=== PATIENT | female | born 1985 | race African-American/Black ===

== ENCOUNTER 2017-11-26 09:06 | Emergency (ER) | payer BC, SELFPAY | END 2017-11-26 09:30 | disposition home or self-care (01) | LOC: ERS 09:06 | DX: H10.9 Unspecified conjunctivitis (principal); F17.210 Nicotine dependence, cigarettes, uncomplicated | CPT/HCPCS: 99282 ==

== ENCOUNTER 2017-11-27 10:14 | Emergency (ER) | payer SELFPAY ==
[2017-11-27] MEDS ORDERED: Proparacaine 0.5% Opth 15 ML BOT ONE (10:52)
[2017-11-27] MEDS ORDERED: Fluorescein Opthalmic Strip ONE (10:52)
== END 2017-11-27 11:50 | disposition home or self-care (01) ==
LOC: ERS 10:14
DX: H10.9 Unspecified conjunctivitis (principal); H00.016 Hordeolum externum left eye, unspecified eyelid; F17.210 Nicotine dependence, cigarettes, uncomplicated
CPT/HCPCS: 99283

== ENCOUNTER 2018-05-23 07:02 | Emergency (ER) | payer SELFPAY ==
[2018-05-23] MEDS ORDERED: Ibuprofen 800 MG TAB ONE (07:23)
== END 2018-05-23 07:44 | disposition home or self-care (01) ==
LOC: ERS 07:02
DX: J02.9 Acute pharyngitis, unspecified (principal); F17.210 Nicotine dependence, cigarettes, uncomplicated
CPT/HCPCS: 87081; 87430; 87804; 99283

== ENCOUNTER 2018-06-02 10:04 | Emergency (ER) | payer SELFPAY | END 2018-06-02 12:15 | disposition home or self-care (01) | LOC: ERS 10:04 | DX: M25.511 Pain in right shoulder (principal) | CPT/HCPCS: 99281 ==

== ENCOUNTER 2018-08-28 21:02 | Emergency (ER) | payer SELFPAY ==
[2018-08-28] MEDS ORDERED: Ibuprofen 200 MG TAB ONE (21:58)
--- NOTE | 2018-08-28 22:02 | RAD ---
XR Shoulder Lt 3 View STANDARD History: Pain Comparison: None. Findings: No acute fracture or malalignment. Soft tissues are unremarkable. Impression: No acute fracture or malalignment.
== END 2018-08-28 22:21 | disposition home or self-care (01) ==
LOC: ERS 21:02
DX: M25.512 Pain in left shoulder (principal); F17.210 Nicotine dependence, cigarettes, uncomplicated

== ENCOUNTER 2018-11-29 18:52 | Emergency (ER) | payer SELFPAY | END 2018-11-29 19:40 | disposition home or self-care (01) | LOC: ERS 18:52 | DX: M25.512 Pain in left shoulder (principal); F17.210 Nicotine dependence, cigarettes, uncomplicated; Z71.6 Tobacco abuse counseling | CPT/HCPCS: 99406 ==

== ENCOUNTER 2019-03-22 16:57 | Emergency (ER) | payer SELFPAY ==
[2019-03-22] MEDS ORDERED: Acetaminophen 500 MG TAB ONE (18:10)
== END 2019-03-22 19:08 | disposition home or self-care (01) ==
LOC: ERS 16:57
DX: J11.1 Influenza due to unidentified influenza virus with other respiratory manifestations (principal); F17.210 Nicotine dependence, cigarettes, uncomplicated
CPT/HCPCS: 87081; 87430; 87804; 99406

== ENCOUNTER 2019-05-25 06:47 | Emergency (ER) | payer SELFPAY | END 2019-05-25 07:32 | disposition home or self-care (01) | LOC: ERS 06:47 | DX: B34.9 Viral infection, unspecified (principal); F17.210 Nicotine dependence, cigarettes, uncomplicated | CPT/HCPCS: 99281 ==

== ENCOUNTER 2020-04-16 09:39 | Emergency (ER) | payer SELFPAY ==
[2020-04-16 14:28] LABS: SARS-CoV-2 PCR by NAA Not Detected (NotDetected)
== END 2020-04-16 10:18 | disposition home or self-care (01) ==
LOC: ERS 09:39
DX: J02.9 Acute pharyngitis, unspecified (principal); R51.9 Headache, unspecified; Z20.822 Contact with and (suspected) exposure to COVID-19
CPT/HCPCS: 87635; 99284; U0003; U0005

== ENCOUNTER 2020-04-28 09:03 | Emergency (ER) | payer SELFPAY ==
[2020-04-28 14:04] LABS: SARS-CoV-2 PCR by NAA Not Detected (NotDetected)
== END 2020-04-28 09:39 | disposition home or self-care (01) ==
LOC: ERS 09:03
DX: J02.9 Acute pharyngitis, unspecified (principal); J34.89 Other specified disorders of nose and nasal sinuses; R05 Cough; M79.10 Myalgia, unspecified site; Z20.822 Contact with and (suspected) exposure to COVID-19
CPT/HCPCS: 87635; 99283; U0003; U0005

== ENCOUNTER 2020-11-06 | Emergency (ER) | payer SELFPAY | END 2020-11-06 12:38 | disposition home or self-care (01) ==

== ENCOUNTER 2021-07-23 10:25 | Emergency (ER) | payer OTHER, SELFPAY | END 2021-07-23 11:47 | disposition home or self-care (01) | LOC: ERS 10:25 | DX: M62.830 Muscle spasm of back (principal); M62.838 Other muscle spasm; F17.210 Nicotine dependence, cigarettes, uncomplicated; V43.52XA Car driver injured in collision with other type car in traffic accident, initial encounter | CPT/HCPCS: 99283 ==

== ENCOUNTER 2021-08-04 12:32 | Emergency (ER) | payer SELFPAY | END 2021-08-04 13:01 | disposition home or self-care (01) | LOC: ERS 12:32 | DX: Z02.89 Encounter for other administrative examinations (principal); F17.210 Nicotine dependence, cigarettes, uncomplicated | CPT/HCPCS: 99281 ==

== ENCOUNTER 2021-10-23 07:07 | Emergency (ER) | payer SELFPAY ==
[2021-10-23] MEDS ORDERED: Dexamethasone 10 MG/ML VIAL ONE (07:32)
[2021-10-23] MEDS ORDERED: Acetaminophen 500 MG TAB ONE (07:32)
== END 2021-10-23 08:06 | disposition home or self-care (01) ==
LOC: ERS 07:07
DX: J02.9 Acute pharyngitis, unspecified (principal); Z20.822 Contact with and (suspected) exposure to COVID-19; F17.210 Nicotine dependence, cigarettes, uncomplicated
CPT/HCPCS: 99283; J1100; U0003; U0005